=== PATIENT | male | born 1970 | race Caucasian/White ===

== ENCOUNTER 2017-08-21 10:35 | Day surgery (SDC) | payer OTHER ==
[~2017-08-21] VITALS: Ht 177.8 cm; Wt 112.0 kg
[2017-08-21] MEDS ORDERED: IOHEXOL 350 MG/ML 50 ML BTL (for Cath Lab) OTHER ONE (10:36)
[2017-08-21] MEDS ORDERED: SODIUM CHLOR 0.9% 1000 ML INJ 1,000 ML IV SCH (11:15)
[2017-08-21 11:34] VITALS: BP 153/82; PULSE 71; RESP 18; TEMP 98.7; O2SAT 99
[2017-08-21] MEDS ORDERED: No Home Meds (11:37)
[2017-08-21] MEDS ORDERED: HEPARIN-NS/PF INJ 1,500 ML ONE (12:23)
[2017-08-21] MEDS ORDERED: VERAPAMIL HCL 5 MG/2 ML VIAL ONE (12:24)
[2017-08-21] MEDS ORDERED: HEPARIN SODIUM - IV 10,000 UNITS/10 ML VIAL ONE (12:24)
[2017-08-21] MEDS ORDERED: MIDAZOLAM HCL 2 MG/2 ML VIAL ONE (13:37)
[2017-08-21] MEDS ORDERED: MISC INFORMATION XX ONE (14:30)
[2017-08-21] MEDS ORDERED: SODIUM CHLORIDE 0.9% FLUSH 10 ML FLUSH IV FLUSH PRN (14:30)
--- NOTE | 2017-08-21 17:54 | MA ---
cc: Capo Waggoner DO DATE: 08/21/2017 DATE OF PROCEDURE: 08/21/2017. ATTENDING: Capo Waggoner DO PROCEDURES PERFORMED: 1. Right heart catheterization via the right brachial vein approach. 2. Left and right coronary angiography via the right radial artery approach. PREPROCEDURE DIAGNOSES: Severe aortic stenosis, symptomatic with fatigue and poor exercise capacity. ANESTHESIA: 1. Fentanyl and Versed were used for conscious sedation. 2. Lidocaine was used for local anesthetic. COMPLICATIONS: None. ESTIMATED BLOOD LOSS: 10 mL. INFORMED CONSENT: Prior to the procedure, the patient was informed of the risks, alternatives and benefits of the procedure including, but not limited to bleeding, vascular complications, stroke, myocardial infarction, arrhythmias, contrast allergy, infection, need for emergent bypass surgery, and , expressing and understanding of these risks, the patient agreed to proceed with the procedure. DESCRIPTION OF PROCEDURE: After informed consent was obtained, the patient was brought to the cardiac catheterization lab in a postabsorptive state. The patient was prepped and draped in the usual sterile fashion. A timeout was taken in order to verify the patient, the procedure and preprocedure labs. The previously placed right brachial vein peripheral IV was exchanged over a micropuncture wire for a 6-Libyan Glidesheath using sterile technique. The sheath was subsequently flushed with sterile saline. A 5-Libyan Capay-Campbell catheter was advanced into the right atrium, at which point the balloon was inflated, was advanced under fluoroscopic guidance and the balloon was inflated once the catheter reached the level of the right atrium. Full hemodynamic assessment of the RA, RV, PA and PCW positions were obtained. Both pulmonary capillary wedge, PA, RV and RA oxygen saturations were obtained to complete an oxygen saturation run with history of VSD status post repair. The catheter was then removed once the balloon was deflated. The right radial artery was then identified by anatomic location and palpation of the radial pulse and overlying subcutaneous layers were anesthetized with 1% lidocaine. The right radial artery was cannulated with a 2.5 cm Cook type needle using a Seldinger technique. A micropuncture wire was advanced into the radial artery without difficulty. A 6-Libyan glide sheath was then advanced over the wire and with wire and dilator were removed, the sidearm was flushed with sterile saline and subsequently flushed between catheter exchanges. A JR 3.5 diagnostic catheter was then advanced over a J-guidewire to the aorta and with J-tipped guidewire and with the wire removed the catheter engaged the right coronary artery. A single angiographic image was obtained. The catheter was then exchanged over an exchange length guidewire for a JL3.5, diagnostic catheter, which was unsuccessful in engaging the left coronary artery. This catheter was exchanged over an exchange length wire for a JL4.0 diagnostic catheter and with guidewire removed successfully engage the left coronary artery. Serial orthogonal angiographic images were obtained. The catheter was then exchanged over an exchange length wire for an angled pigtail catheter, at which a few attempts to cross the aortic valve were unsuccessful, likely due to the patient's underlying aortic stenosis. The catheter was then removed over a wire with completion of the case. The right radial artery sheath was pulled with placement of a TR band and hemostasis achieved prior to the patient leaving the cardiac catheterization laboratory in stable condition. The right brachial vein sheath was left in place to be pulled in the post-procedural room once ACT was less than 170. HEMODYNAMIC FINDINGS: 1. RA: 9 mmHg, normal size V-waves. 2. RV: 37/1, EDP 7 mmHg. Normal ventricularized waveforms. 3. PA: 33/11, mean 20 mmHg. Normal-appearing dicrotic notch. 4. PCW: 22 mmHg. Large V-waves noted which morphologically looked most consistent with catheter whip. 5. PA saturation 80.4%. 6. RV saturation 79.3%. 7. RA saturation 80.5%. 8. Arterial saturation 97.2%. 9. Lucinda cardiac output 9.9 liters/minute, CI 4.3 liters/minute/meter2 at a heart rate of 60 BPM. ANGIOGRAPHIC FINDINGS: 1. LEFT MAIN CORONARY ARTERY: Left main coronary artery arises from the aorta in its usual position. It is of short length, moderate caliber vessel and angiographically free of disease. 2. LAD: The LAD is a moderate caliber vessel and gives rise to a small diagonal branch before continuing distally to wrap the apex. It is angiographically free of disease. 3. LEFT CIRCUMFLEX: The left circumflex is a moderate caliber co-dominant vessel and continues distally to course the AV groove providing left-sided PDA. It is angiographically free of disease. 4. RIGHT CORONARY ARTERY: The right coronary artery arises from the aorta in its usual position as a moderate caliber codominant vessel and continues distally with a right-sided PDA. It is angiographically free of disease. CONCLUSION: Normal epicardial coronary arteries with normal right-sided filling pressures. Given history of prior ventricular septal defect repair, we completed a saturation run which did not reveal any stepdown in oxygen saturation. No evidence of persistent ventricular septal defect. PLAN: The patient will be monitored with post-procedural protocol and the right brachial vein sheath will be pulled once his ACT is below 170 with manual pressure applied until hemostasis is achieved, per protocol. He will then be discharged home with followup in 1 week. We will have him referred to Cardiothoracic Surgery for surgical AVR evaluation. DO KACEY Dennis/DESMOND , 05:19 PM , 05:54 PM
[2017-08-21] MEDS ORDERED: SODIUM CHLORIDE 0.9% FLUSH 10 ML FLUSH IV FLUSH SCH (21:00)
== END 2017-08-21 18:49 | disposition home or self-care (01) ==
LOC: HDIC 10:35 → HDOC 10:35
PROVIDERS: ATTEND Internal Medicine Cardiovascular Disease
DX: I35.0 Nonrheumatic aortic (valve) stenosis (principal); I35.1 Nonrheumatic aortic (valve) insufficiency; I27.20 Pulmonary hypertension, unspecified; E78.5 Hyperlipidemia, unspecified; R60.9 Edema, unspecified; E66.9 Obesity, unspecified; M71.20 Synovial cyst of popliteal space [Baker], unspecified knee; M79.89 Other specified soft tissue disorders; N52.9 Male erectile dysfunction, unspecified
CPT/HCPCS: 82810; 85002; 93454; 99152; 99153; C1769; C1893; J1644; J2250; J3010; Q9967